=== PATIENT | male | born 1970 | race Two or more races ===

== ENCOUNTER → 2024-10-31 | Outpatient (CLI) | payer OTHER, SELFPAY ==
--- NOTE | 2024-10-31 15:43 | XR_ITS ---
Examination: Foot, left, 3 views Technique: AP, oblique, lateral views foot, 3 views Date and time of exam: October 31, 2024 1551 hours INDICATIONS: Patient fell today with injury to foot, foot pain. FINDINGS: No acute fracture No dislocation No foreign body IMPRESSION: No acute fracture
--- NOTE | 2024-10-31 15:43 | XR_ITS ---
EXAMINATION: Ankle, left 3 views. Technique: Ankle AP, oblique, lateral 3 views Date and time of exam: October 31, 2024 1551 hours INDICATIONS: Patient fell today with injury to ankle, ankle pain. FINDINGS: No fracture or dislocation. No foreign body IMPRESSION: No fracture or dislocation
== END | disposition home or self-care (01) ==
LOC: CDIM 14:53
PROVIDERS: PCP Nurse Practitioner Family; Referring Provider Nurse Practitioner Family; Visit Provider Nurse Practitioner Family
DX: S99.912A Unspecified injury of left ankle, initial encounter (principal); S99.922A Unspecified injury of left foot, initial encounter; W19.XXXA Unspecified fall, initial encounter
CPT/HCPCS: 73610; 73630